=== PATIENT | male | born 1985 | race African-American/Black ===

== ENCOUNTER 2017-06-15 16:19 | Emergency (ER) | payer OTHER ==
[~2017-06-15] VITALS: Ht 182.9 cm; Wt 72.0 kg
[2017-06-15 16:20] VITALS: BP 132/91; PULSE 89; RESP 12; TEMP 98.6; O2SAT 96
[2017-06-15] MEDS ORDERED: ROBA500T PO (16:58)
[2017-06-15] MEDS ORDERED: IBUP800T23 PO (16:58)
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
[2017-06-15] MEDS ORDERED: METHOCARBAMOL 500 MG TAB PO ONE (17:00)
[2017-06-15] MEDS ORDERED: IBUPROFEN 800 MG TAB PO ONE (17:00)
== END 2017-06-15 17:36 | disposition home or self-care (01) ==
LOC: NEPK 16:19
DX: S39.012A Strain of muscle, fascia and tendon of lower back, initial encounter (principal); V89.2XXA Person injured in unspecified motor-vehicle accident, traffic, initial encounter
CPT/HCPCS: 99283